=== PATIENT | female | born 1945 | race Caucasian/White ===

== ENCOUNTER 2017-08-05 02:21 | Emergency (ER) | payer MEDICARE ==
[~2017-08-05] VITALS: Ht 147.3 cm; Wt 54.0 kg
[2017-08-05 02:57] LABS: Basophils # (auto) 0.1 uL; Eosinophils # (auto) 0.3 uL; Mean Corpuscular Volume 82.2 fL (80.0-100.0); Monocytes # (auto) 0.7 uL; Monocytes % (auto) 7.5 % (0.0-12.0); Red Blood Cells 4.12 10^6/uL (4.0-5.20)
[2017-08-05 02:59] LABS: Eosinophils % (auto) 3.2 % (0.0-7.0); Hematocrit 33.9 % (36.0-46.0); Hemoglobin 10.8 g/dL (12.2-16.2); Lymphocytes % (auto) 22.5 % (10.0-50.0); Mean Corpuscular Hemoglobin 26.3 pg (28.0-32.0); Neutrophils # (auto) 5.8 uL; Neutrophils % (auto) 65.8 % (37.0-80.0); Platelet Count (auto) 289 10^3/uL (140-450); Red Cell Distribution Width 17.5 % (11.8-14.3); White Blood Cell 8.8 10^3/uL (4.4-10.8)
[2017-08-05 03:16] LABS: Alanine Aminotransferase 29 U/L (13-56); Albumin 3.5 g/dL (3.4-5.0); Anion Gap 13 (5-15); BUN/Creatinine Ratio 10.8; Blood Urea Nitrogen 12 mg/dL (7-18); Calcium 9.1 mg/dL (8.5-10.1); Carbon Dioxide 21 mmol/L (21-32); Chloride 105 mmol/L (98-107); GFR African American 62 mL/min; GFR Non-African American 52 mL/min; Glucose 211 mg/dL (74-106); Magnesium 1.6 mg/dL (1.6-2.6); Potassium 4.5 mmol/L (3.5-5.1); Sodium 139 mmol/L (136-145)
[2017-08-05 03:26] LABS: Uric Acid 6.3 mg/dL (2.6-6.0)
[2017-08-05 03:27] LABS: Alkaline Phosphatase 74 U/L (45-117); Aspartate Aminotransferase 12 U/L (15-37); Bilirubin, Total 0.4 mg/dL (0.2-1.0); Total Protein 7.1 g/dL (6.4-8.2)
[2017-08-05 03:36] VITALS: BP 169/84
[2017-08-05] MEDS ORDERED: KETOROLAC TROMETH 30 MG/ML 1ML VIAL IM ONE (04:15)
== END 2017-08-05 04:36 | disposition home or self-care (01) ==
LOC: ER 02:23
DX: M25.532 Pain in left wrist (principal); E11.9 Type 2 diabetes mellitus without complications; I10 Essential (primary) hypertension
CPT/HCPCS: 29125; 36415; 73110; 80053; 83735; 84484; 84550; 85025; 93005; 96372; 99285; J1885

== ENCOUNTER 2020-06-03 18:18 | Emergency (ER) | payer MEDICARE, MEDICAID ==
[~2020-06-03] VITALS: Ht 147.3 cm; Wt 59.0 kg
[2020-06-03 19:22] LABS: Urine Bacteria NONE SEEN /hpf (None Seen); Urine Blood 3+ /uL (Negative); Urine WBC 568 /hpf (0 - 5); Urine WBC Clumps PRESENT /hpf (None Seen)
[2020-06-03 19:24] LABS: Urine Specific Gravity 1.015 (1.001-1.035)
[2020-06-03 19:37] LABS: Basophils # (auto) 0.1 10 ^3/uL (0-0.2); Eosinophils # (auto) 0.3 10 ^3/uL (0-0.8); Nucleated Red Blood Cells % 0.1 %; White Blood Cell 8.8 10^3/uL (4.4-10.8)
[2020-06-03 19:38] LABS: Eosinophils % (auto) 3.6 % (0.0-7.0); Hematocrit 35.8 % (36.0-46.0); Lymphocytes # (auto) 1.6 10 ^3/uL (0.4-5.4); Lymphocytes % (auto) 18.3 % (10.0-50.0); Mean Corpuscular Hemoglobin 26.9 pg (28.0-32.0); Mean Corpuscular Hgb Conc. 33.3 g/dL (32.0-36.0); Mean Corpuscular Volume 80.6 fL (80.0-100.0); Monocytes # (auto) 0.8 10 ^3/uL (0-1.3); Monocytes % (auto) 8.6 % (0.0-12.0); Neutrophils % (auto) 68.5 % (37.0-80.0); Platelet Count (auto) 263 10^3/uL (140-450); Red Blood Cells 4.45 10^6/uL (4.0-5.20); Red Cell Distribution Width 16.7 % (11.8-14.3)
[2020-06-03 19:51] LABS: INR 1.08 (0.9-1.15); Partial Thromboplastin Time 24.8 sec (23.0-31.2)
[2020-06-03 19:58] LABS: Albumin 3.6 g/dL (3.4-5.0); BUN/Creatinine Ratio 32.6; Calcium 8.6 mg/dL (8.5-10.1); Potassium 3.9 mmol/L (3.5-5.1)
[2020-06-03 20:03] LABS: Bilirubin, Total 0.4 mg/dL (0.2-1.0); Lactic Acid w/Reflex 2.2 mmol/L (0.4-2.0); Total Protein 6.9 g/dL (6.4-8.2)
[2020-06-04] MEDS ORDERED: cefTRIAXone SOD 1,000 MG VL IM ONE
[2020-06-04 00:10] VITALS: BP 126/74
[2020-06-04] MEDS ORDERED: LIDOCAINE 1% HCL (LOCAL ANESTH.) INJ 20ML MDV ONE (01:59)
== END 2020-06-04 04:28 | disposition home or self-care (01) ==
LOC: ER 18:18
DX: R31.9 Hematuria, unspecified (principal); N20.0 Calculus of kidney; N39.0 Urinary tract infection, site not specified; I12.9 Hypertensive chronic kidney disease with stage 1 through stage 4 chronic kidney disease, or unspecified chronic kidney disease; E11.22 Type 2 diabetes mellitus with diabetic chronic kidney disease; N18.9 Chronic kidney disease, unspecified
CPT/HCPCS: 36415; 74176; 80053; 81001; 83605; 83880; 84484; 85025; 85610; 85730; 87086; 96372; 99284; J0696; J2001